=== PATIENT | female | born 1980 | race African-American/Black ===

== ENCOUNTER 2016-10-30 22:20 | Emergency (ER) | payer MEDICAID ==
[~2016-10-30] VITALS: Ht 162.6 cm; Wt 81.6 kg
[~2016-10-30 22:20] MED LIST: TYLENOL EXTRA500 MG ORAL
[2016-10-30 22:36] VITALS: BP 145/91
[2016-10-30] MEDS ORDERED: PHENAZOPYRIDIN200 MG ORAL (22:39)
[2016-10-30] MEDS ORDERED: NITROFURANTOIN100 M2 ORAL (22:39)
[2016-10-30 22:44] LABS: APPEARANCE,URINE CLEAR; KETONES,URINE NEGATIVE (NEGATIVE); LEUKOCYTE ESTERASE ,URINE NEGATIVE (NEGATIVE); NITRITE,URINE NEGATIVE (NEGATIVE); PH,URINE 7 (4.5-8.0); PROTEIN,URINE NEGATIVE (NEGATIVE); UROBILINOGEN,URINE NORMAL MG/DL (0.0-1.0)
[2016-10-30 23:07] VITALS: BP 145/91
--- NOTE | 2016-10-30 23:51 | Emergency Room Report ---
History of Present Illness General Chief Complaint: Female Urogenital Problems Source: Patient Present Illness [facility] The patient is a 36-year-old female who presented after increased urinary frequency for one week. Patient gradual onset of symptoms. Patient any abdominal pain or vaginal discharge. Patient had increased pulling sensation. She denied any fever. She had a back pain. Patient had not been vomiting or having diarrhea. She denied any vaginal discharge. She states not . Allergies: Coded Allergies: No Known Allergies (Unverified , 12/02/15) Patient History Past Medical History: see triage record Last Menstrual Period: 10/03/16 Now: No Reviewed Nursing Documentation: PMH: Agreed, PSxH: Agreed Nursing Documentation-PMH Past Medical History: No History, Except For Review of Systems All Other Systems: negative except mentioned in HPI Physical Exam Vital Signs Date Time Temp Pulse Resp B/P Pulse Ox O2 Delivery O2 Flow Rate FiO2 10/30/16 22:23 98.2 68 14 145/91 99 Room Air General Appearance: well appearing, no apparent distress, alert, GCS 15 Head: normocephalic, atraumatic ENT: hearing grossly normal, normal voice Neck: full range of motion, supple Respiratory: no respiratory distress, speaking full sentences Cardiovascular #1: normal inspection, normal peripheral pulses, regular rate, rhythm Gastrointestinal: normal inspection, normal bowel sounds, non tender Musculoskeletal: normal inspection, back normal, no calf tenderness Neurologic: normal inspection, alert, oriented x3, normal gait Psychiatric: normal inspection, mood/affect normal Skin: no rash Medical Decision Making Diagnostic Impression: Primary Impression: Dysuria ER Course Patient presented for dysuria. Differential diagnosis included was not limited to appendicitis, urinary tract infection, pelvic inflammatory disease, urethritis, herpes among others. Patient's benign exam and does not appear to require any further imaging or laboratory testing at this time. The patient was advised followup for STD testing. Urinalysis showed no evidence of infection. The urine test was negative.The patient is advised to follow up with primary care doctor in 1-2 days. Patient is advised to return if any worsening condition or if any changes in status that are concerning. Last Vital Signs Date Time Temp Pulse Resp B/P Pulse Ox O2 Delivery O2 Flow Rate FiO2 10/30/16 23:07 98.2 69 14 145/91 99 Room Air Status: improved Disposition: HOME, SELF-CARE Condition: Stable Patient Instructions: Damian Escalerab 10, 2017 23:51
== END 2016-10-30 23:09 | disposition home or self-care (01) ==
LOC: EMR 22:32
DX: R30.0 Dysuria (principal); M54.9 Dorsalgia, unspecified
CPT/HCPCS: 81003; 81025; 99282